=== PATIENT | male | born 1945 | race Native Hawaiian/Other Pacific Islander ===

== ENCOUNTER 2018-08-31 11:46 | Inpatient (IN) | payer OTHER ==
[~2018-08-31] VITALS: Ht 180.3 cm; Wt 93.2 kg
[2018-08-31 12:01] VITALS: BP 137/73; TEMP 97.3
[2018-08-31 12:44] LABS: PLATELET COUNT 326 K/uL (142-355)
[2018-08-31 13:14] LABS: POTASSIUM 3.3 mmol/L (3.6-5.2); SODIUM 136 mmol/L (136-145)
[2018-08-31 15:42] VITALS: BP 134/98
[2018-08-31 16:51] VITALS: BP 155/69; TEMP 97.5; Ht 180.3 cm; Wt 93.2 kg
[2018-08-31 16:55] VITALS: BP 155/69; TEMP 97.5
[2018-08-31 20:00] VITALS: BP 151/98; BP 154/79; TEMP 98.1; TEMP 98.2
[2018-09-01] VITALS: BP 140/71; TEMP 97.8
[2018-09-01] MEDS ORDERED: GABA400C2 PO (01:15)
[2018-09-01] MEDS ORDERED: HYDRALAZINE50 MG PO (01:17)
[2018-09-01] MEDS ORDERED: PANTOPRAZOLE 40MG TA PO (01:18)
[2018-09-01] MEDS ORDERED: HYDR-3182 PO (01:20)
[2018-09-01] MEDS ORDERED: HYDR25TA60 PO (01:21)
[2018-09-01] MEDS ORDERED: FURO20TA67 PO (01:21)
[2018-09-01] MEDS ORDERED: AMLODIPINE BESYLATE PO (01:22)
[2018-09-01] MEDS ORDERED: OLMESARTAN MEDO40 MG PO (01:22)
[2018-09-01] MEDS ORDERED: EQ STOOL SOFTE100 MG PO (01:24)
[2018-09-01] MEDS ORDERED: ALLO100T22 PO (01:25)
[2018-09-01] MEDS ORDERED: ASA LOW DOSE81 MG PO (01:25)
[2018-09-01 04:30] VITALS: BP 168/83; TEMP 98.2
[2018-09-01 05:07] LABS: POTASSIUM 3.6 mmol/L (3.6-5.2); SODIUM 140 mmol/L (136-145)
[2018-09-01 08:00] VITALS: BP 178/86; TEMP 98
[2018-09-01 12:00] VITALS: BP 121/82; TEMP 97.8
[2018-09-01 16:00] VITALS: BP 121/82; TEMP 97.8
[2018-09-01 20:00] VITALS: BP 147/68; TEMP 97.6
[2018-09-02] VITALS (7 sets, daily range): BP systolic 157–181; BP diastolic 74–99; TEMP 97.5–98
[2018-09-02 05:03] LABS: POTASSIUM 3.6 mmol/L (3.6-5.2)
[2018-09-03 00:42] VITALS: BP 170/87; TEMP 98.4
[2018-09-03 04:00] VITALS: BP 180/92; TEMP 98.1
[2018-09-03 08:00] VITALS: BP 152/80; TEMP 98
== END 2018-09-03 12:00 | disposition home or self-care (01) | DRG 641 ==
LOC: ED 11:46 → MED/SURG 14:15
PROVIDERS: Emergency Medicine
DX: E86.0 Dehydration (principal); N18.4 Chronic kidney disease, stage 4 (severe); R41.82 Altered mental status, unspecified; I95.89 Other hypotension; Z96.652 Presence of left artificial knee joint; M25.562 Pain in left knee; R39.2 Extrarenal uremia; R63.0 Anorexia; I12.9 Hypertensive chronic kidney disease with stage 1 through stage 4 chronic kidney disease, or unspecified chronic kidney disease
CPT/HCPCS: 36415; 80048; 80053; 82550; 82553; 84484; 85027; 85379; 93005; 96360; 99284; J3490

== ENCOUNTER 2019-08-30 15:47 | Outpatient (CLI) | payer OTHER ==
[~2019-08-30 15:47] MED LIST: ALLO100T22 PO; AMLODIPINE BESYLATE PO; ASA LOW DOSE81 MG PO; EQ STOOL SOFTE100 MG PO; FURO20TA67 PO; GABA400C2 PO; HYDR-3182 PO; HYDR25TA60 PO; HYDRALAZINE50 MG PO; OLMESARTAN MEDO40 MG PO; PANTOPRAZOLE 40MG TA PO
[2019-08-30 16:44] LABS: PLATELET COUNT 190 K/uL (142-355)
== END 2019-08-30 22:07 | disposition home or self-care (01) ==
LOC: LABW 15:47
PROVIDERS: Podiatrist
DX: I12.9 Hypertensive chronic kidney disease with stage 1 through stage 4 chronic kidney disease, or unspecified chronic kidney disease (principal); B35.1 Tinea unguium
CPT/HCPCS: 36415; 80053; 81000; 82043; 82570; 83735; 84100; 84155; 85027

== ENCOUNTER → 2019-10-11 | Outpatient (CLI) | payer OTHER | LOC: US 10:49 | DX: N18.4 Chronic kidney disease, stage 4 (severe) (principal) ==

== ENCOUNTER 2022-11-03 15:52 | Emergency (ER) | payer OTHER ==
[~2022-11-03] VITALS: Ht 180.3 cm; Wt 83.9 kg
[2022-11-03 16:29] LABS: PLATELET COUNT 193 K/uL (142-355)
[2022-11-03 16:30] LABS: POTASSIUM 3.4 mmol/L (3.6-5.2)
[2022-11-03 23:40] VITALS: BP 135/82; TEMP 97.8
[2022-11-03 23:40] LABS: POTASSIUM 3.4 mmol/L (3.6-5.2)
== END 2022-11-03 23:40 | disposition short-term general hospital (02) ==
LOC: ED 15:52
PROVIDERS: Family Medicine
DX: E16.2 Hypoglycemia, unspecified (principal); I48.92 Unspecified atrial flutter
CPT/HCPCS: 36415; 80048; 80053; 81002; 84484; 85027; 93005; 96374; 96375; 96376; 99285; J2405; J7060